=== PATIENT | female | born 1985 | race Two or more races ===

== ENCOUNTER → 2024-10-22 | Outpatient (CLI) | payer MEDICAID, SELFPAY ==
--- NOTE | 2024-10-22 15:45 | XR_ITS ---
Examination: Screening digital mammography, bilateral Computer aided detection 3-D breast Tomosynthesis, bilateral Date and time of exam: October 22, 2024 1542 hours Indication: Screening Technique: Nonmagnified MLO, CC views of the breasts to been obtained, reconstructed from 3-D Tomosynthesis images. R2 computer aided detection program utilized for evaluation of suspicious masses and/or abnormal calcifications. 3-D Tomosynthesis images obtained. Findings: Scattered areas of fibroglandular density. 13 mm oval nodule partially indistinct margins retroareolar region right breast Prominent left axillary lymph node Impression: BI-RADS Category 0: Incomplete: Need additional imaging evaluation Recommend follow-up spot tomographic views of 13 mm oval nodule partially indistinct margins retroareolar region right breast Recommend bilateral breast sonography to complete the workup
== END | disposition home or self-care (01) ==
LOC: CDIM 15:32
PROVIDERS: Referring Provider Family Medicine; Visit Provider Family Medicine
DX: Z12.31 Encounter for screening mammogram for malignant neoplasm of breast (principal); N63.42 Unspecified lump in left breast, subareolar; N63.41 Unspecified lump in right breast, subareolar
CPT/HCPCS: 77063; 77067

== ENCOUNTER → 2024-11-24 | Outpatient (CLI) | payer MEDICAID, SELFPAY ==
--- NOTE | 2024-11-24 13:30 | XR_ITS ---
Examination: Breast ultrasound complete, bilateral Date and time of exam: November 24, 2024 1352 hours INDICATIONS: Mammogram October 22, 2024 13 mm oval mass retroareolar region right breast Technique: Real-time grayscale ultrasonographic imaging bilateral breasts, including all 4 quadrants as well as nipple retroareolar and axillary regions. Findings: Sonographic images right breast Retroareolar nodule circumscribed 10 x 11 mm Sonographic images left breast Retroareolar nodule circumscribed 6 x 7 mm IMPRESSION: BI-RADS Category 3: Probably benign findings One additional bilateral six-month breast sonography follow-up is needed to document stability of bilateral breast nodules described above
--- NOTE | 2024-11-24 14:30 | XR_ITS ---
Examination: Diagnostic digital mammography, unilateral, right Computer aided detection 3-D breast Tomosynthesis, unilateral Date and time of exam: November 24, 2024 1406 hours INDICATIONS: Mammogram October 22, 2024 13 mm oval nodule partially indistinct margins retroareolar region right breast Technique: Nonmagnified MLO, CC views of the right breast have been obtained, reconstructed from 3-D Tomosynthesis images. R2 computer aided detection program utilized for evaluation of suspicious masses and/or abnormal calcifications. 3-D Tomosynthesis images obtained. Findings: Scattered areas of fibroglandular density Circumscribed retroareolar nodule is confirmed 10 x 11 mm Impression: BI-RADS category 3: Probably benign findings One additional 6 month right mammogram follow-up is needed to document stability of retroareolar nodule described above
== END | disposition home or self-care (01) ==
LOC: CDIM 12:55
PROVIDERS: PCP Family Medicine; Referring Provider Family Medicine; Visit Provider Family Medicine
DX: N63.42 Unspecified lump in left breast, subareolar (principal); N63.41 Unspecified lump in right breast, subareolar; R92.333 Mammographic heterogeneous density, bilateral breasts
CPT/HCPCS: 76641; 77061; 77065; G0279